=== PATIENT | male | born 1945 | race Caucasian/White ===

== ENCOUNTER 2016-08-29 15:18 | Inpatient (IN) ==
[2016-08-29] MEDS ORDERED: Ipratropium/Albuterol Neb 3 ML IH ONE (15:43)
[2016-08-29] MEDS ORDERED: Levofloxacin 750 MG/150 ML 750 MG/150 ML BAG IVPB ONE (16:00)
--- NOTE | 2016-08-29 16:15 | Emergency Department Note ---
Disposition Clinical Impression: Acute exacerbation of chronic obstructive airways disease, Hypoxia Disposition: Admitted As Inpatient Condition: Fair Referrals: Arnie Mcginnis DO [Primary Care Provider] - Forms: ED Satisfaction Letter Time of Disposition: 17:16 (darinel palmer) SOB HPI - General Chief Complaint: ED Shortness of Breath/Dyspnea Stated Complaint: RIYA Time Seen by Provider: 08/29/16 15:20 Source: patient, EMS Mode of arrival: ambulatory Limitations: no limitations Nursing Notes Reviewed: Yes Vital Signs Reviewed: Yes - History of Present Illness Seen at local urgent care was put on inhaled steroids and albuterol treatments patient states it is not gotten any better he has had no cough congestion medicine he has had no antibiotics he did not have any oral steroids he continues to get tighter he is having cough dyspnea with activity and wheezing he states he is bringing up some thick yellow tenacious sputum he denies any blurred vision that was lost vision diarrhea melena hematochezia hematemesis he has dyspnea with activity Pt Subjective Complaint: shortness of breath, cough 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 Denies: chest pain, pain with inspiration, fever, orthopnea, lower extremity pain, polyuria, polydipsia, parasthesias, palpitations, hemoptysis, diaphoresis, nausea/vomiting, syncope, abdominal pain, rash, sense of impending doom Treatment prior to arrival: oxygen, bronchodilator Cough present: Yes Cough Description: Involuntary, Productive, Hacking, Bronchospastic, Wheezy Cough Frequency: Intermittent Sputum Amount: Small Sputum Color: Yellow, Green - Related Data Home Medications Medication Instructions Recorded Confirmed Albuterol Neb [AccuNeb] 0.083 mg IH Q4H PRN 08/29/16 08/29/16 Amlodipine Besylate 10 mg PO DAILY 08/29/16 08/29/16 Aspirin 81 mg PO DAILY 08/29/16 08/29/16 Atorvastatin [Lipitor] 20 mg PO HS 08/29/16 08/29/16 Carvedilol 12.5 mg PO DAILY 08/29/16 08/29/16 Cyanocobalamin (B-12) [Vitamin B12] 2,000 mcg PO DAILY 08/29/16 08/29/16 Insulin ASPART [Novolog Flexpen] 20 unit SQ DAILY 08/29/16 08/29/16 Insulin ASPART [Novolog Flexpen] 45 unit SQ BID 08/29/16 08/29/16 Insulin Glargine [Lantus] 65 unit SQ HS 08/29/16 08/29/16 Liraglutide [Victoza 2-Avery] 1.8 mg SQ DAILY 08/29/16 08/29/16 Lisinopril [Zestril] 20 mg PO DAILY 08/29/16 08/29/16 [place]-3/Dha/Epa/Fish Oil [Fish Oil 1 each PO BID 08/29/16 08/29/16 1,000 mg Softgel] Allergies Allergy/AdvReac Type Severity Reaction Status Date / Time No Known Allergies Allergy Verified 08/29/16 15:19 All systems ED: reviewed and negative except as stated. Constitutional: Denies: fever, chills Eyes: Denies: vision change ENT ED: Denies: ear pain, congestion Cardiovascular: Denies: chest pain, palpitations Respiratory: Reports: cough, dyspnea, wheezes, sputum production Gastrointestinal: Denies: abdominal pain, nausea Genitourinary: Denies: urgency, dysuria, frequency Musculoskeletal: Denies: back pain, neck pain Integumentary: Denies: rash, abrasion Neurological: Denies: headache Psychiatric: Denies: anxiety Endocrine: Denies: fatigue Hematological/Lymphatic: Denies: easy bleeding Allergic/Immunologic: Denies: facial swelling Past Medical History - Past Medical History Source: patient, old records reviewed, nursing notes reviewed Medical history: Reports: CVA, diabetes, hyperlipidemia, hypertension, other Psychiatric history: Reports: no psych history - Social History Smoking Status: Former smoker Smokeless Tobacco Status: No Alcohol use: Reports: none Drug use: Reports: none Physical Exam - General Limitations: no limitations, language barrier General appearance: alert, in no apparent distress - Head Head exam: atraumatic, normocephalic, normal inspection - Eye Eye exam: Present: normal appearance, PERRL, EOMI - ENT ENT exam: normal exam, normal oropharynx, mucous membranes moist, TM's normal bilaterally, normal external ear exam - Neck Neck exam: Present: normal inspection, full ROM, trachea midline - Chest Chest inspection: Present: normal inspection, symmetric chest wall rise - Respiratory Respiratory exam: Present: wheezes, prolonged expiratory phase, other (dyspnea with coughing) - Cardiovascular Cardiovascular exam: Present: regular rate, normal rhythm, normal heart sounds - Abdominal Exam Abdominal exam: Present: soft, Non-Tender, normal bowel sounds - Extremities Exam Extremities exam: Present: normal inspection, full ROM, normal capillary refill - Back Exam Back exam: Present: normal inspection, full ROM - Neurological Exam Neurological exam: Present: alert, oriented X3, CN II-XII intact - Psychiatric Psychiatric exam: Present: normal affect, normal mood - Skin Skin exam: Present: warm, dry, intact, normal color Course Course Narrative: Patient comes emergency room he is having shortness of breath chest x-ray workup was done and shows that he has had exacerbation of COPD most likely benefit from steroids and bronchodilator for a treatment throughout the night to see if this will help release and right open the bronchospastic. He is actually having hypoxia with coughing patient will be admitted services of Dr. Bansal he has been given Levaquin and Solu-Medrol in the ER for aerosols with no relief Vital Signs Temperature 98.6 F 08/29/16 15:20 Pulse Rate 96 08/29/16 15:20 Respiratory Rate 20 08/29/16 15:20 Blood Pressure 150/97 08/29/16 15:20 O2 Sat by Pulse Oximetry 96 08/29/16 15:20 Temperature 98.6 F 08/29/16 15:24 Pulse Rate 100 08/29/16 17:02 Respiratory Rate 22 08/29/16 17:02 Blood Pressure 140/77 08/29/16 17:02 O2 Sat by Pulse Oximetry 94 L 08/29/16 17:02 Oxygen Delivery Oxygen Delivery Nasal Cannula Shortness of Breath/Dyspnea - Differential Diagnosis Likely: acute exacerbation of chronic obstructive airways disease - Medical Records Medical records reviewed: Yes I reviewed the patient's medical records. - Lab Data Lab results reviewed: Yes I reviewed the patient's lab results. Result diagrams: 08/29/16 16:06 08/29/16 16:06 Lab Results 08/29/16 08/29/16 08/29/16 Range/Units 16:06 16:06 16:06 WBC 9.4 (4.3-11.1) K/mcL RBC 5.10 (4.19-5.50) M/mcL Hgb 16.0 (12.9-16.9) g/dL Hct 47.7 (37.5-50.1) % MCV 93.5 (83.0-100.0) fL MCH 31.4 (28.0-33.3) pg MCHC 33.5 (31.6-35.5) g/dL RDW 14.1 (11.5-14.5) % Plt Count 152 (140-400) K/mcL MPV 10.0 (9.4-12.4) fL Immature Gran % 0.3 (0-4) % Seg Neutrophils % 67.9 % Lymphocytes % 19.2 % Monocytes % 6.2 % Eosinophils % 6.0 % Basophils % 0.4 % Neutrophils # 6.4 (1.6-8.9) K/mcL Lymphocytes # 1.8 (0.6-4.6) K/mcL Monocytes # 0.6 (0.0-1.3) K/mcL Eosinophils # 0.6 (0.0-0.6) K/mcL Basophils # 0.0 (0.0-0.2) K/mcL PT 11.0 (9.4-12.1) Seconds INR 1.0 APTT 34.3 (26.0-36.0) Seconds Sodium 142 (136-145) mEq/L Potassium 4.4 (3.5-4.5) mEq/L Chloride 107 (98-109) mEq/L Carbon Dioxide 24 (19-29) mEq/L BUN 20 (8-26) mg/dL Creatinine 1.47 H (0.72-1.25) mg/dL Est GFR ( Amer) 58 L (> 60) Est GFR (Non-Af Amer) 48 L (> 60) BUN/Creatinine Ratio 14 (6-26) Glucose 123 H (70-99) mg/dL Calculated Osmolality 298 (280-300) Calcium 8.7 (8.6-10.8) mg/dL - Radiology Data Radiology results reviewed: Yes I reviewed the patient's radiology results. ITS Impressions Chest X-Ray 08/29/16 15:44 IMPRESSION: No acute cardiac or pulmonary disease. D/ / Thomas Layton MD / Thomas Layton MD Interpreting Provider: Thomas Layton MD Critical Care Time Critical Care Time: No
[2016-08-29 16:18] LABS: Basophils % 0.4 %; Eosinophils # 0.6 K/mcL (0.0-0.6); Hematocrit 47.7 % (37.5-50.1); Immature Granulocytes % 0.3 % (0-4); Lymphocytes # 1.8 K/mcL (0.6-4.6); Lymphocytes % 19.2 %; Mean Corpuscular HGB Conc 33.5 g/dL (31.6-35.5); Mean Corpuscular Hemoglobin 31.4 pg (28.0-33.3); Mean Corpuscular Volume 93.5 fL (83.0-100.0); Monocytes # 0.6 K/mcL (0.0-1.3); Monocytes % 6.2 %; Neutrophils # 6.4 K/mcL (1.6-8.9); Platelet Count 152 K/mcL (140-400); Red Cell Distribution Width 14.1 % (11.5-14.5); Segmented Neutrophils % 67.9 %
[2016-08-29 16:25] LABS: Activated Partial Thrombo Time 34.3 Seconds (26.0-36.0)
[2016-08-29 16:35] LABS: Calcium 8.7 mg/dL (8.6-10.8); Potassium 4.4 mEq/L (3.5-4.5)
[2016-08-29] MEDS ORDERED: Naloxone 0.4 MG/ML INJ IVP PRN (18:27)
[2016-08-29] MEDS ORDERED: Albuterol 2.5 MG/3 ML NEBULIZER IH PRN (18:27)
[2016-08-29] MEDS: 0.9 % Sodium Chloride 1,000 ML IVC SCH (20:11)
[2016-08-29] MEDS: OMEGA 3/FISH OIL PO SCH (20:29)
[2016-08-29] MEDS ORDERED: Insulin DETEMIR 100 UNIT/ML per UNIT SQ ONE (21:00)
[2016-08-29] MEDS: Ipratropium/Albuterol Neb 3 ML IH SCH (23:22)
[2016-08-30] MEDS: Ipratropium/Albuterol Neb 3 ML IH SCH (04:38)
[2016-08-30] MEDS: 0.9 % Sodium Chloride 1,000 ML IVC SCH ×2 (05:40→15:26)
[2016-08-30 06:06] LABS: Basophils % 0.1 %; Eosinophils % 0.1 %; Hematocrit 47.8 % (37.5-50.1); Immature Granulocytes % 1.1 % (0-4); Lymphocytes # 1.2 K/mcL (0.6-4.6); Lymphocytes % 12.6 %; Mean Corpuscular HGB Conc 33.5 g/dL (31.6-35.5); Mean Corpuscular Hemoglobin 31.2 pg (28.0-33.3); Mean Corpuscular Volume 93.2 fL (83.0-100.0); Mean Platelet Volume 10.3 fL (9.4-12.4); Monocytes # 0.1 K/mcL (0.0-1.3); Monocytes % 0.8 %; Neutrophils # 7.9 K/mcL (1.6-8.9); Platelet Count 153 K/mcL (140-400); Red Blood Count 5.13 M/mcL (4.19-5.50); Segmented Neutrophils % 85.3 %
[2016-08-30 06:21] LABS: INR 1.2; Prothrombin Time 12.5 Seconds (9.4-12.1)
[2016-08-30 06:24] LABS: Activated Partial Thrombo Time 32.7 Seconds (26.0-36.0)
[2016-08-30 06:31] LABS: Calcium 8.5 mg/dL (8.6-10.8); Potassium 4.4 mEq/L (3.5-4.5)
[2016-08-30] MEDS: Insulin LISPRO 300 UNITS/3 ML VIAL SQ SCH ×5 (08:51→22:17)
[2016-08-30] MEDS: Cyanocobalamin (B-12) 1,000 MCG TABLET PO SCH (08:56)
[2016-08-30] MEDS: Aspirin 81 MG TAB.CHEW PO SCH (08:56)
[2016-08-30] MEDS: Lisinopril 20 MG TABLET PO SCH (08:56)
[2016-08-30] MEDS: OMEGA 3/FISH OIL PO SCH ×2 (08:57→23:54)
[2016-08-30] MEDS: Liraglutide [Victoza 2-Pak] 1.8 MG SQ SCH (08:57)
[2016-08-30] MEDS ORDERED: NON-FORMULARY MEDICATION 1 EACH EACH (Insulin Aspart [Novolog Flexpen] 20 UNIT) SQ SCH (09:00)
[2016-08-30] MEDS ORDERED: Levalbuterol Neb 1.25 MG/3 ML IH PRN (09:40)
[2016-08-30] MEDS: Levalbuterol Neb 1.25 MG/3 ML IH SCH ×3 (10:24→22:26)
[2016-08-30] MEDS: Levalbuterol Neb 1.25 MG/3 ML IH PRN (13:52)
[2016-08-30] MEDS: Levofloxacin 500 MG/100 ML 500 MG/100 ML BAG IVPB SCH (15:28)
[2016-08-30] MEDS ORDERED: Dextrose Gel 15 GM PO PRN ×2 (16:18)
[2016-08-30] MEDS ORDERED: *HR* Dextrose 50 % in Water (Syg) 50 ML SYRINGE IVP PRN (16:18)
[2016-08-30] MEDS ORDERED: D5% in Water 1,000 ML IV PRN (16:18)
[2016-08-30] MEDS ORDERED: Insulin LISPRO 300 UNITS/3 ML VIAL SQ STA (19:07)
--- NOTE | 2016-08-30 20:07 | Internal Med History&Physical ---
Date of Encounter: 08/30/16 Time of Encounter: 20:03 Assessment and Plan (1) Acute exacerbation of chronic obstructive airways disease Current visit: Yes Status: Acute Patient is tight wheezy, chest pain with cough, we will continue Solu-Medrol and continue neb treatments changed from observation to full admission. Answered patient's questions (2) Hypoxia Current visit: Yes Status: Acute Continue oxygen as needed (3) Acute bronchitis Current visit: Yes Status: Acute Weight tight wheezing, Levaquin, Solu-Medrol Qualifiers: Bronchitis organism: unspecified organism Qualified Code(s): J20.9 - Acute bronchitis, unspecified (4) DM type 2 (diabetes mellitus, type 2) Current visit: Yes Status: Acute Patient's blood sugars been really high since admission and being on steroids. Continue Levemir and Humalog sliding scale with Accu-Cheks Qualifiers: Diabetes mellitus complication status: without complication Diabetes mellitus alf insulin use: with director long term care use Qualified Code(s): E11.9 - Type 2 diabetes mellitus without complications; Z79.4 - retirement (current) use of insulin (5) History of CVA (cerebrovascular accident) Current visit: Yes Status: Acute Patient reports no sequelae does not remember what happened, will give Lovenox for DVT prophylactics (6) HLD (hyperlipidemia) Current visit: Yes Status: Acute Reports being stable continue simvastatin Qualifiers: Hyperlipidemia type: unspecified Qualified Code(s): E78.5 - Hyperlipidemia , unspecified (7) HTN (hypertension) Current visit: Yes Status: Acute Stable continue the amlodipine and carvedilol lisinopril Qualifiers: Hypertension type: essential hypertension Qualified Code(s): I10 - Essential (primary) hypertension Internal Medicine - H&P: HPI Chief complaint: Shortness of breath Admitted From: Home Plans for Post Hospital Care: Home History of present illness: Mr. Weiss is a 71 year old male is into the emergency room with shortness of breath and coughing. Then coughing enough that it hurts his ribs near sharp chest pain. Coughing up a little phlegm but not much. He has shortness of breath and dyspnea on exertion is felt weak and fatigued, headache dizziness but denies fevers chills nausea vomiting diarrhea, blood in his urine and stool rest review of systems was negative. He is wearing oxygen and is not on oxygen at home. X-ray did not show an infiltrate and sputum showed moderate gram- positive cocci. He asked about the usual stay. For COPD exacerbation with bronchitis or pneumonias usually 3-5 days stay. Answer all his questions addressed his concerns Past Med Surg Social Fam HX - Past Medical History Medical history: CVA, diabetes, hyperlipidemia, hypertension, other (Left eye legally blind, lazy eye, colonic polyp) Psychiatric history: no psych history - Past Surgical History Surgical History: herniorrhaphy (Bilateral inguinal), other (Left hand repair, bilateral heel spur) - Social History Smoking Status: Former smoker Smokeless Tobacco Status: No Alcohol use: none Drug use: other (Daily caffeine use and decaf coffee about 2 cups a day,Because caffeine is a stimulant and makes one feel a boost of energy by tapping into ones reserve energy, it can lead to anxiety and panic attacks. When used routiely, it interferes with deep sleep, so the reserve energy isn't being replaced effectively which leads to tiredness, depression, higher risk of infection. I recommend patients gives up daily use.) Occupational status: retired Current living situation: With Family Activity Level: Independent ambulation - Family History Mother Living Status: (Congestive heart failure) Hx Family Cardiac Disorders: Yes Hx Family Endocrine Disorder: Yes Father Living Status: (Lung cancer) Internal Medicine - H&P: Meds Albuterol Neb [AccuNeb] 0.083 mg IH Q4H PRN 08/29/16 [History] Amlodipine Besylate 10 mg PO DAILY 08/29/16 [History] Aspirin 81 mg PO DAILY 08/29/16 [History] Atorvastatin [Lipitor] 20 mg PO HS 08/29/16 [History] Carvedilol 12.5 mg PO DAILY 08/29/16 [History] Cyanocobalamin (B-12) [Vitamin B12] 2,000 mcg PO DAILY 08/29/16 [History] Insulin ASPART [Novolog Flexpen] 20 unit SQ DAILY 08/29/16 [History] Insulin ASPART [Novolog Flexpen] 45 unit SQ BID 08/29/16 [History] Insulin Glargine [Lantus] 65 unit SQ HS 08/29/16 [History] Liraglutide [Victoza 2-Avery] 1.8 mg SQ DAILY 08/29/16 [History] Lisinopril [Zestril] 20 mg PO DAILY 08/29/16 [History] [place]-3/Dha/Epa/Fish Oil [Fish Oil 1,000 mg Softgel] 1 each PO BID 08/29/16 [ History] Allergies No Known Allergies Allergy (Verified 08/29/16 15:19) All Systems PM: A 10-system review of systems was performed and is negative for pertinent findings except as documented above in the HPI. - Constitutional Vitals: Temp Pulse Resp BP Pulse Ox 97.6 F 106 18 134/55 96 08/30/16 19:29 08/30/16 19:29 08/30/16 19:29 08/30/16 19:29 08/30/16 19:29 - Head Head exam: Present: atraumatic, normocephalic - Eye Eye exam: Present: PERRL, conjuntiva pink, sclera anicteric Pupils: Present: PERRL - Neck Neck exam general surgery: Present: supple, trachea midline. Absent: lymphadenopathy - Respiratory Respiratory exam: Present: respiratory distress, wheezes (Tight and raspy). Absent: accessory muscle use, rales, rhonchi - Cardiovascular Cardiovascular exam: Present: RRR, +S1, +S2. Absent: diastolic murmur, gallop, rubs, systolic murmur - GI/Abdominal GI/Abdominal exam: Present: normal bowel sounds, soft, no peritoneal signs. Absent: distended, tenderness - Extremities Exam Extremities exam: Present: pedal edema (1 plus), warm. Absent: calf tenderness , cyanotic - Neurological Exam Neurological exam: Present: CN II-XII intact, oriented X3, no focal deficits. Absent: facial droop, speech deficit - Skin Skin exam: Present: dry, intact Internal Med - H&P Results - Labs CBC & Chem 7: 08/30/16 05:36 08/30/16 05:36 Labs: Short CBC 08/30/16 Range/Units 05:36 WBC 9.3 (4.3-11.1) K/mcL Hgb 16.0 (12.9-16.9) g/dL Hct 47.8 (37.5-50.1) % Plt Count 153 (140-400) K/mcL Neutrophils # 7.9 (1.6-8.9) K/mcL BMP 08/30/16 05:36 Sodium 139 Potassium 4.4 Chloride 106 Carbon Dioxide 18 L BUN 26 Creatinine 1.62 H Glucose 294 H Calcium 8.5 L
[2016-08-30] MEDS: Insulin DETEMIR 100 UNIT/ML X5UNITS SQ SCH (22:13)
[2016-08-31] MEDS: 0.9 % Sodium Chloride 1,000 ML IVC SCH ×3 (02:02→22:10)
[2016-08-31] MEDS: Levalbuterol Neb 1.25 MG/3 ML IH PRN (02:23)
[2016-08-31] MEDS: Levalbuterol Neb 1.25 MG/3 ML IH SCH ×5 (04:35→21:31)
[2016-08-31] MEDS: *HR* Enoxaparin 40 MG/0.4 ML SYRINGE SQ SCH (06:11)
[2016-08-31] MEDS: Insulin LISPRO 300 UNITS/3 ML VIAL SQ SCH ×7 (07:56→22:12)
[2016-08-31] MEDS: Cyanocobalamin (B-12) 1,000 MCG TABLET PO SCH (09:44)
[2016-08-31] MEDS: OMEGA 3/FISH OIL PO SCH ×2 (09:44→22:13)
[2016-08-31] MEDS: Liraglutide [Victoza 2-Pak] 1.8 MG SQ SCH (09:44)
[2016-08-31] MEDS: Aspirin 81 MG TAB.CHEW PO SCH (09:45)
[2016-08-31] MEDS: Lisinopril 20 MG TABLET PO SCH (09:45)
[2016-08-31] MEDS: Levofloxacin 500 MG/100 ML 500 MG/100 ML BAG IVPB SCH (15:34)
--- NOTE | 2016-08-31 18:29 | Internal Med Progress Note ---
Date of Encounter: 08/31/16 Time of Encounter: 18:27 - Assessment and plan (1) Acute exacerbation of chronic obstructive airways disease Current Visit: Yes Status: Acute Assessment and plan: August 31. Continue neb treatments, Solu-Medrol. (2) Acute bronchitis Current Visit: Yes Status: Acute Assessment and plan: . Coughing improves as he sits up worsens when he lays down continue his Solu-Medrol Levaquin follow-up CBC. Qualifiers: Bronchitis organism: unspecified organism Qualified Code(s): J20.9 - Acute bronchitis, unspecified (3) Chronic kidney disease Current Visit: Yes Status: Acute Assessment and plan: August 31. Creatinine is getting worse probably because her blood sugars as well controlled follow-up BMP. Qualifiers: Chronic kidney disease stage: stage 3 (moderate) Qualified Code(s): N18.3 - Chronic kidney disease, stage 3 (moderate) (4) Hypoxia Current Visit: Yes Status: Acute Assessment and plan: August 31. 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 (7) HLD (hyperlipidemia) Current Visit: Yes Status: Acute Qualifiers: Hyperlipidemia type: unspecified Qualified Code(s): E78.5 - Hyperlipidemia , unspecified (8) HTN (hypertension) Current Visit: Yes Status: Acute Assessment and plan: August 31. Stable continue lisinopril Coreg, amlodipine Qualifiers: Hypertension type: essential hypertension Qualified Code(s): I10 - Essential (primary) hypertension - Time Spent With Patient 25 - 35 minutes - Subjective Interval history: August 31. Patient reports she is little less short of breath still dyspnea on exertion and Walk a few feet from his bed to chair. He reports anytime he leans backwards his coughing worsens. Has a sharp chest pain when he coughs. Feeling little stronger. His blood sugars running 369 5 afebrile vital signs stable, he has gained grams of weight since yesterday possibly steroid effect. Continue to monitor and follow up labs. Questions answered and concerns addressed - Constitutional Vitals: Temp Pulse Resp BP Pulse Ox 98.0 F 97 18 133/76 94 L 08/31/16 15:11 08/31/16 15:11 08/31/16 17:39 08/31/16 15:11 08/31/16 17:39 Exam: General: Alert and oriented, no acute distress Lungs: Tight wheezy anterior congestion but not as tight as yesterday Heart: Regular rate and rythms without murmer or rubs Abdomen: Soft, nontender, Extremities: no edema, redness Internal Medicine: Result - Labs CBC & Chem 7: 08/30/16 05:36 08/30/16 05:36 - ABG Interpretation ABG results: PT/INR, D-dimer PT 12.5 Seconds (9.4-12.1) H 08/30/16 05:36 Consult Discharge Plan - Plan Referrals: Arnie Mcginnis DO [Primary Care Provider] - 1 week
[2016-08-31] MEDS: Insulin DETEMIR 100 UNIT/ML X5UNITS SQ SCH (22:12)
[2016-09-01] MEDS: Levalbuterol Neb 1.25 MG/3 ML IH PRN (02:45)
[2016-09-01] MEDS: Levalbuterol Neb 1.25 MG/3 ML IH SCH ×3 (04:59→15:14)
[2016-09-01] MEDS: *HR* Enoxaparin 40 MG/0.4 ML SYRINGE SQ SCH (06:34)
[2016-09-01 06:46] LABS: Basophils % 0.2 %; Hematocrit 44.9 % (37.5-50.1); Hemoglobin 14.9 g/dL (12.9-16.9); Immature Granulocytes % 1.3 % (0-4); Lymphocytes # 0.6 K/mcL (0.6-4.6); Lymphocytes % 4.5 %; Mean Corpuscular HGB Conc 33.2 g/dL (31.6-35.5); Mean Corpuscular Hemoglobin 31.5 pg (28.0-33.3); Mean Corpuscular Volume 94.9 fL (83.0-100.0); Monocytes # 0.3 K/mcL (0.0-1.3); Monocytes % 2.4 %; Platelet Count 148 K/mcL (140-400); Red Blood Count 4.73 M/mcL (4.19-5.50); Red Cell Distribution Width 14.4 % (11.5-14.5); Segmented Neutrophils % 91.6 %
[2016-09-01 06:51] LABS: Neutrophils # 11.6 K/mcL (1.6-8.9)
[2016-09-01 07:07] LABS: BUN/Creatinine Ratio 28 (6-26); Blood Urea Nitrogen 36 mg/dL (8-26); Carbon Dioxide 19 mEq/L (19-29); Chloride 112 mEq/L (98-109); Glucose 321 mg/dL (70-99); Osmolality,Calculated 313 (280-300); Potassium 4.8 mEq/L (3.5-4.5); Sodium 141 mEq/L (136-145); eGFR For African Americans > 60 (> 60); eGFR For Non-African Americans 55 (> 60)
[2016-09-01] MEDS: 0.9 % Sodium Chloride 1,000 ML IVC SCH (08:26)
[2016-09-01] MEDS: Insulin LISPRO 300 UNITS/3 ML VIAL SQ SCH ×4 (08:27→11:58)
[2016-09-01] MEDS: Lisinopril 20 MG TABLET PO SCH (08:28)
[2016-09-01] MEDS: Cyanocobalamin (B-12) 1,000 MCG TABLET PO SCH (08:28)
[2016-09-01] MEDS: Liraglutide [Victoza 2-Pak] 1.8 MG SQ SCH (08:28)
[2016-09-01] MEDS: OMEGA 3/FISH OIL PO SCH (08:28)
[2016-09-01] MEDS: Aspirin 81 MG TAB.CHEW PO SCH (08:28)
[2016-09-01] MEDS ORDERED: Furosemide 20 MG/2 ML VIAL IVP SCH (11:15)
[2016-09-01] MEDS ORDERED: Racepinephrine Neb 0.5 ML VIAL IH ONE (11:32)
--- NOTE | 2016-09-01 12:34 | Discharge Summary ---
Date of Encounter: 09/01/16 Time of Encounter: 12:31 - Discharge Diagnosis (1) Acute exacerbation of chronic obstructive airways disease Priority: Primary Status: Acute Comments: Patient remained tight and wheezy this morning had a worsening episode in which he need to Xopenex treatments to open up. He felt scared because he could not breathe. Ordered Ativan 0.5 every 6 hours when necessary agitation or anxiety patient requests being transferred up to [facility] with her specialists. He is on Xopenex every 6 hours and every 2 hours when necessary and Solu-Medrol and 25 iv every 6 hours along with the 2-4 L oxygen (2) Acute bronchitis Priority: Primary Status: Acute Comments: Patient white count went up to 12.7 with neutrophil percent slightly up at 11.6. Continue Levaquin. Consider adding a second antibiotic Zosyn. Qualifiers: Bronchitis organism: unspecified organism Qualified Code(s): J20.9 - Acute bronchitis, unspecified (3) Hypoxia Priority: Primary Status: Acute Comments: Continue oxygen as needed (4) DM type 2 (diabetes mellitus, type 2) Priority: Primary Status: Acute Comments: Patient needing lighting scale insulin since on Solu-Medrol, continued his Humalog and Levemir Qualifiers: Diabetes mellitus complication status: with kidney complications Diabetes mellitus complication detail: with chronic kidney disease Diabetes mellitus group home insulin use: with group home use Qualified Code(s): E11.22 - Type 2 diabetes mellitus with diabetic chronic kidney disease; N18.3 - Chronic kidney disease, stage 3 (moderate); Z79.4 - residential (current) use of insulin (5) History of CVA (cerebrovascular accident) Priority: Secondary Status: Chronic Comments: Stable (6) HLD (hyperlipidemia) Priority: Secondary Status: Chronic Comments: Stable Qualifiers: Hyperlipidemia type: unspecified Qualified Code(s): E78.5 - Hyperlipidemia , unspecified (7) HTN (hypertension) Priority: Secondary Status: Chronic Comments: Stable continue the carvedilol, lisinopril Qualifiers: Hypertension type: essential hypertension Qualified Code(s): I10 - Essential (primary) hypertension (8) Chronic kidney disease Priority: Secondary Status: Chronic Comments: Stable with creatinine getting a little better at 1.29 from 1.62 however his swelling Qualifiers: Chronic kidney disease stage: stage 3 (moderate) Qualified Code(s): N18.3 - Chronic kidney disease, stage 3 (moderate) - Discharge Medications Home Medications: Albuterol Neb [AccuNeb] 0.083 mg IH Q4H PRN 08/29/16 [History] Amlodipine Besylate 10 mg PO DAILY 08/29/16 [History] Aspirin 81 mg PO DAILY 08/29/16 [History] Atorvastatin [Lipitor] 20 mg PO HS 08/29/16 [History] Carvedilol 12.5 mg PO DAILY 08/29/16 [History] Cyanocobalamin (B-12) [Vitamin B12] 2,000 mcg PO DAILY 08/29/16 [History] Insulin ASPART [Novolog Flexpen] 20 unit SQ DAILY 08/29/16 [History] Insulin ASPART [Novolog Flexpen] 45 unit SQ BID 08/29/16 [History] Insulin Glargine [Lantus] 65 unit SQ HS 08/29/16 [History] Liraglutide [Victoza 2-Avery] 1.8 mg SQ DAILY 08/29/16 [History] Lisinopril [Zestril] 20 mg PO DAILY 08/29/16 [History] [place]-3/Dha/Epa/Fish Oil [Fish Oil 1,000 mg Softgel] 1 each PO BID 08/29/16 [ History] Allergies/Adverse Reactions: Allergies No Known Allergies Allergy (Verified 08/29/16 15:19) Date of admission: 08/30/16 20:52 Primary care physician: Arnie Mcginnis DO Discharging clinician: [place] Anticipated date of discharge: 09/01/16 - Patient Status Disposition: Transfer Other Condition: Fair Functional capacity at discharge: bed bound Overall status at discharge: other - Discharge Instructions Follow Up With: Arnie Mcginnis DO [Primary Care Provider] - 1 week - Diet and Activity Activity: wear oxygen at all times Diet: advance to your usual diet (Patient will be transferred to [facility] by ambulance with IV access and oxygen) Hospital course: Mr. Weiss is a 71 year old male is not emergency room with COPD exacerbation and started on Solu-Medrol and Xopenex treatments. He also had bronchitis. Start Levaquin he had no infiltrates on chest x-ray. The first couple days she seemed to be improving now he was gaining some weight. I gave him some Lasix. This morning he was symmetrically more short of breath and needed to Xopenex treatments to start plan we will let short of breath. At time he requested be transferred to [facility]. I talked to Dr. You who accepted the patient in transfer. Discussed with diet management and they will arrange her room. He did this continue all the treatments here and they will have to reorder them up there. Since she will be going by ambulance originally from on oxygen IV access. Discussed with patient and family treatment options, questions answered and concerns addressed - Time Spent with Patient Total time spent providing and/or coordinating discharge services: Greater than 30 minutes - Constitutional Vitals: Temp Pulse Resp BP Pulse Ox 97.3 F L 93 34 124/79 94 L 09/01/16 07:39 09/01/16 07:39 09/01/16 11:20 09/01/16 07:39 09/01/16 11:20 Exam: General: Alert and oriented, no acute distress Lungs: Tight diffuse wheezing without crackles Heart: Regular rate and rythms without murmer or rubs Abdomen: Soft, nontender, Extremities: no edema, redness
[2016-09-01 14:40] VITALS: BP 123/76
[2016-09-01] MEDS ORDERED: Insulin DETEMIR 100 UNIT/ML X5UNITS SQ SCH (21:00)
== END 2016-09-01 15:30 | disposition short-term general hospital (02) | DRG 192 ==
LOC: INPPIK 15:18 → EMEROOPIK 15:18 → INPPIK 18:35
PROVIDERS: ADMIT Internal Medicine; ATTEND Internal Medicine